=== PATIENT | male | born 1975 | race African-American/Black ===

== ENCOUNTER 2017-11-10 18:24 | Emergency (ER) | payer MEDICAID ==
[~2017-11-10] VITALS: Ht 193 cm; Wt 89.0 kg
[2017-11-10] MEDS ORDERED: KETOROLAC 60MG/2ML VIAL IM ONE (19:15)
[2017-11-10] MEDS ORDERED: TRAMADOL 50MG TABLET PO ONE (21:15)
[2017-11-10 21:55] VITALS: BP 136/70
== END 2017-11-10 21:55 | disposition home or self-care (01) ==
LOC: ER 18:41
DX: M25.561 Pain in right knee (principal); J45.909 Unspecified asthma, uncomplicated; X58.XXXA Exposure to other specified factors, initial encounter; Y93.67 Activity, basketball; Y92.89 Other specified places as the place of occurrence of the external cause
CPT/HCPCS: 73562; 96372; 99284; J1885; L1830; Z7610

== ENCOUNTER 2017-11-21 22:00 | Emergency (ER) | payer MEDICAID ==
[~2017-11-21] VITALS: Ht 193 cm; Wt 89.0 kg
[2017-11-22] MEDS ORDERED: BACITRACIN ZINC OINT UDPKT TOP ONE (02:00)
[2017-11-22] MEDS ORDERED: LIDOCAINE HCL 1% 20ML VIAL (Pyxis) INJ INFIL ONE (02:00)
[2017-11-22] MEDS ORDERED: LIDOCAINE HCL/PF 1% 10 MG/ML 30ML VIAL INFIL ONE (02:15)
[2017-11-22] MEDS ORDERED: LIDOCAINE HCL/PF 1% 10 MG/ML 30ML VIAL INFIL SCH (02:15)
[2017-11-22 03:25] VITALS: BP 105/74
== END 2017-11-22 04:00 | disposition home or self-care (01) ==
LOC: ER 22:00
DX: S01.81XA Laceration without foreign body of other part of head, initial encounter (principal); J45.909 Unspecified asthma, uncomplicated; F17.200 Nicotine dependence, unspecified, uncomplicated; F12.10 Cannabis abuse, uncomplicated; X58.XXXA Exposure to other specified factors, initial encounter; Y93.67 Activity, basketball; Y92.89 Other specified places as the place of occurrence of the external cause; Y99.8 Other external cause status; Z98.890 Other specified postprocedural states
CPT/HCPCS: 12013; 99283; J3490; X7700; Z7610

== ENCOUNTER 2017-12-02 09:53 | Emergency (ER) | payer MEDICAID ==
[~2017-12-02] VITALS: Ht 193 cm; Wt 100.0 kg
[2017-12-02 09:59] VITALS: BP 121/71
[2017-12-02] MEDS ORDERED: BACITRACIN ZINC OINT UDPKT TOP ONE (10:30)
== END 2017-12-02 10:57 | disposition home or self-care (01) ==
LOC: ER 10:54
DX: Z48.02 Encounter for removal of sutures (principal)
CPT/HCPCS: 99283